=== PATIENT | female | born 1985 | race Caucasian/White ===

== ENCOUNTER 2023-10-06 16:49 | Emergency (ER) | payer SELFPAY ==
[2023-10-06] MEDS ORDERED: ACETAMINOPHEN 500 MG TABLET (FP) PO ONE (17:12)
[2023-10-06 17:16] VITALS: BMI 40.4
[2023-10-06] MEDS ORDERED: ACETAMINOPHEN 500 MG TABLET (FP) ONE (18:06)
[2023-10-06] MEDS ORDERED: KETOROLAC TROMETHAMINE 15 MG/ML VIAL IVPUSH ONE (20:11)
[2023-10-06] MEDS ORDERED: SODIUM CHLORIDE 0.9% 500 ML INFUS.BAG IV ONE (20:11)
[2023-10-06] MEDS ORDERED: KETOROLAC TROMETHAMINE 15 MG/ML VIAL ONE (20:16)
[2023-10-06 21:07] VITALS: BP 109/61; PULSE 100; RESP 18; TEMP 98.3
== END 2023-10-06 21:50 | disposition home or self-care (01) ==
LOC: JERFT 16:49
PROC: 3E0333Z Introduction of Anti-inflammatory into Peripheral Vein, Percutaneous Approach (ICD-10-PCS; principal; 2023-10-06)
DX: R50.9 Fever, unspecified (principal); M79.10 Myalgia, unspecified site; B34.9 Viral infection, unspecified; Z20.822 Contact with and (suspected) exposure to COVID-19
CPT/HCPCS: 0241U-QW; 99284-25